=== PATIENT | female | born 1985 | race Caucasian/White ===

== ENCOUNTER 2018-01-10 13:52 | Emergency (ER) | payer BC ==
--- NOTE | 2018-01-10 16:11 | ER Document Report ---
ED Oral Problem - General Mode of Arrival: Ambulatory Information source: Patient TRAVEL OUTSIDE OF THE [place] IN LAST 30 DAYS: No - General Chief Complaint: Toothache Stated Complaint: MOUTH PAIN Time Seen by Provider: 01/10/18 15:52 Notes: Patient is a 32-year-old female presenting to the emergency department complaining of multiple symptoms including a toothache, throat pain and earaches. Patient contributes her throat pain and earaches to her toothache. Patient states that she has a history of recurrent tooth pain and tooth infections further stating she has been trying to get the tooth removed but is unable to do so due to her recurrent infections. Patient also reports popping and abscess on her bottom left gumline yesterday and fever of 101. (ANAMARIA,TAMAYA) - Related Data Allergies/Adverse Reactions: aspirin Allergy (Verified 01/10/18 13:59) peanut Allergy (Verified 01/10/18 13:59) Past Medical History - General Information source: Patient - Social History Smoking Status: Unknown if Ever Smoked Family History: Reviewed & Not Pertinent - Immunizations Immunizations up to date: Yes Hx Diphtheria, Pertussis, Tetanus Vaccination: Yes Review of Systems - Review of Systems Constitutional: No symptoms reported EENT: See HPI Cardiovascular: No symptoms reported Respiratory: No symptoms reported Gastrointestinal: No symptoms reported Genitourinary: No symptoms reported Female Genitourinary: No symptoms reported Musculoskeletal: No symptoms reported Skin: No symptoms reported Hematologic/Lymphatic: No symptoms reported Neurological/Psychological: No symptoms reported -: Yes All other systems reviewed and negative Physical Exam - Vital signs Vitals: Temp Pulse Resp BP Pulse Ox 98.4 F 78 16 139/98 H 99 01/10/18 14:04 01/10/18 14:04 01/10/18 14:04 01/10/18 14:04 01/10/18 14:04 - Notes Notes: GENERAL: Alert, interacts well. No acute distress. HEAD: Normocephalic, atraumatic. EYES: Pupils equal, round, and reactive to light. Extraocular movements intact. ENT: Oral mucosa moist, tongue midline. Bilateral tonsillar swelling, no exudate. Posterior oropharynx is erythematous. No peritonsillar abscess. 1st bottom left molar contains a cavity, no gumline swelling. No bogginess. No evidence of mastoiditis. Nares patent, no nasal septal hematoma, TM's intacts. NECK: Full range of motion. Supple. Trachea midline. No lympadenopathy. LUNGS: No respiratory distress. EXTREMITIES: Moves all 4 extremities spontaneously. No edema, radial and dorsalis pedis pulses 2/4 bilaterally. No cyanosis. NEUROLOGICAL: Alert and oriented x3. Normal speech. SKIN: Warm, dry, normal turgor. No rashes or lesions noted. (YAZMIN CONRAD) Course - Re-evaluation Re-evalutation: 01/10/18 16:41 Instructed patient not to take naproxen. (YAZMIN CONRAD) 01/10/18 16:12 Tooth#19 has dental carrier, no evidence of interval abscess or peritonsillar abscess or retropharyngeal abscess. Patient does have bilateral tonsillar enlargement. Will provide 10 days of clindamycin for concern of apical abscess as well as suspected pharyngitis. Advised patient to follow-up with her dentistry for reevaluation if symptoms regarding her tooth persist. Return precautions provided (NAM LAYNE) - Vital Signs Vital signs: Temp Pulse Resp BP Pulse Ox 98.9 F 74 20 146/98 H 99 01/10/18 16:28 01/10/18 16:28 01/10/18 16:28 01/10/18 16:28 01/10/18 16:28 Discharge - Discharge Clinical Impression: Abscessed tooth Pharyngitis Qualifiers: Pharyngitis/tonsillitis etiology: unspecified etiology Qualified Code(s): J02.9 - Acute pharyngitis, unspecified Disposition: HOME, SELF-CARE Instructions: Clindamycin ([facility]), Tonsillitis ([facility]) Additional Instructions: Please follow-up with your dentist first available appointment for reevaluation. Prescriptions: Clindamycin HCl 300 mg PO QID 10 Days #40 capsule Naproxen 500 mg PO BID #20 tablet Scribe Attestation: 01/11/18 14:32 I personally performed the services described in the documentation, reviewed and edited the documentation which was dictated to the scribe in my presence, and it accurately records my words and actions. (NAM LAYNE) Scribe Documentation - Scribe Written by [place]:: Yazmin Nicholas, 01/10/2018 16:34 acting as scribe for :: Ulises
[2018-01-10] MEDS ORDERED: DEXAMETHASONE SOD PHOS INJ 10 MG/1 ML VIAL IM ONE (16:19)
[2018-01-10 16:43] VITALS: BP 146/98
== END 2018-01-10 16:41 | disposition home or self-care (01) ==
LOC: ER 13:52
DX: J02.9 Acute pharyngitis, unspecified (principal); K04.7 Periapical abscess without sinus; K08.9 Disorder of teeth and supporting structures, unspecified; Z88.6 Allergy status to analgesic agent; Z91.010 Allergy to peanuts
CPT/HCPCS: 99282; 96372; J1100